=== PATIENT | male | born 1950 | race Caucasian/White ===

== ENCOUNTER 2016-06-20 08:20 | Outpatient (CLI) | payer OTHER ==
[2016-06-20 09:11] LABS: eGFR (African) > 60; eGFR (Non-African) > 60
== END 2016-06-20 08:23 ==
LOC: LAB 08:20
PROVIDERS: ATTEND Family Medicine
DX: E79.0 Hyperuricemia without signs of inflammatory arthritis and tophaceous disease (principal); R73.9 Hyperglycemia, unspecified; Z12.5 Encounter for screening for malignant neoplasm of prostate
CPT/HCPCS: 36415; 80053; 80061; 83036; 84153

== ENCOUNTER 2017-07-31 08:37 | Outpatient (CLI) | payer MEDICARE, OTHER ==
[2017-07-31 09:33] LABS: eGFR (African) > 60; eGFR (Non-African) > 60
== END 2017-07-31 08:40 ==
LOC: LAB 08:37
PROVIDERS: ATTEND Family Medicine
DX: I10 Essential (primary) hypertension (principal); E78.5 Hyperlipidemia, unspecified; E79.0 Hyperuricemia without signs of inflammatory arthritis and tophaceous disease; R73.9 Hyperglycemia, unspecified
CPT/HCPCS: 36415; 80053; 80061; 83036; 84153; 84550

== ENCOUNTER 2018-06-30 08:42 | Outpatient (CLI) | payer MEDICARE, OTHER ==
[2018-06-30 10:00] LABS: eGFR (Non-African) > 60
== END 2018-06-30 08:44 ==
LOC: LAB 08:42
PROVIDERS: ATTEND Family Medicine
DX: E78.5 Hyperlipidemia, unspecified (principal); R73.9 Hyperglycemia, unspecified; E79.0 Hyperuricemia without signs of inflammatory arthritis and tophaceous disease; Z11.59 Encounter for screening for other viral diseases; Z12.5 Encounter for screening for malignant neoplasm of prostate
CPT/HCPCS: 36415; 80053; 80061; 83036; 84153; 84550; 86803